=== PATIENT | female | born 1990 | race Caucasian/White ===

== ENCOUNTER 2016-08-14 07:45 | Emergency (ER) | payer OTHER ==
[~2016-08-14] VITALS: Ht 167.6 cm; Wt 59.1 kg
--- NOTE | 2016-08-14 08:12 | ERD ---
ER Documentation Chief Complaint Date/Time DATE: 08/14/16 TIME: 08:01 Chief Complaint HPI 26-year-old female with no significant medical history presents to the ED via rescue ambulance for evaluation of anxiety. Bystanders activated 911 after they witnessed her stumbling around in the street. Patient states [facility]. She feels anxious and has not had her Xanax since discharge. Denies depression, hallucinations, suicidal or homicidal ideations. Otherwise asymptomatic. No chest pain, shortness of breath or palpitations. No shortness of breath or cough. Denies headache neck or back pain. No fevers or chills. History limited due to cognitive impairment. ROS All systems reviewed and are negative except as per history of present illness. Medications Home Meds Unable to Obtain Active Prescriptions or Reported Meds Allergies Allergies: Coded Allergies: Unknown: Unable to obtain (Unverified , 08/14/16) PMhx/Soc Reviewed in chart. As per HPI. History of Surgery: No Anesthesia Reaction: No Hx Neurological Disorder: No Hx Respiratory Disorders: No Hx Cardiac Disorders: No Hx Psychiatric Problems: Yes (Anxiety) Hx Miscellaneous Medical Probl: No Hx Alcohol Use: No Hx Substance Use: No Hx Tobacco Use: No FmHx No stroke or cancer Family History: No coronary disease, No diabetes, No other Physical Exam Vitals Vital Signs Date Time Temp Pulse Resp B/P Pulse Ox O2 Delivery O2 Flow Rate FiO2 08/14/16 14:52 98.0 100 16 119/77 99 Room Air 08/14/16 11:00 109 16 109/84 99 Room Air 08/14/16 09:00 89 16 96/61 99 Room Air 08/14/16 08:36 96.6 79 12 98/69 100 Physical Exam Const: Sleepy but arousable. Intermittently restless and agitated.. Head: Atraumatic Eyes: Pupils equal reactive to light, extraocular movements are intact. Normal Conjunctiva. Horizontal nystagmus. ENT: Normal External Ears, Nose and Mouth. + Gag. Neck: Full range of motion. Nontender. No meningismus. Resp: Breath sounds are equal and clear to auscultation bilaterally. No rales rhonchi or wheezes. Cardio: Regular rate and rhythm, no murmurs Abd: Soft, non tender, non distended. Normal bowel sounds. No rebound or guarding. No masses or abnormal pulsations. Skin: No petechiae or rashes Back: No midline or flank tenderness Ext: No cyanosis, or edema Neur: Sleepy but arousable. Cranial nerves II through XII are grossly intact. No focal deficit observed. Psych: Restless and agitated. Denies drug or alcohol use. Result Diagram: 08/14/16 1255 08/14/16 1127 Results 24 hrs Laboratory Tests Test 08/14/16 07:58 08/14/16 08:03 08/14/16 11:27 08/14/16 12:55 Urine Color LT. YELLOW Urine Clarity CLEAR Urine pH 6.0 Urine Specific [place] <=1.005 Urine Ketones NEGATIVE Urine Nitrite NEGATIVE Urine Bilirubin NEGATIVE Urine Urobilinogen 0.2 E.U./dL Urine Leukocyte Esterase NEGATIVE Urine Microscopic RBC 0-2/HPF Urine Microscopic WBC 0-2/HPF Urine Squamous Epithelial Cells OCCASIONAL Urine Bacteria OCCASIONAL Urine Hemoglobin 1+ Urine Glucose NEGATIVE% Urine Total Protein NEGATIVE Urine Test NEGATIVE Urine Opiates Screen Negative Urine Barbiturates Negative Urine Amphetamines Screen Negative Urine Benzodiazepines Screen Negative Urine Cocaine Screen Negative Urine Cannabinoids Negative Bedside Glucose 83mg/dL Sodium Level 145mmol/L Potassium Level 3.4mmol/L Chloride Level 110mmol/L Carbon Dioxide Level 26mmol/L Anion Gap 12 Blood Urea Nitrogen 7mg/dl Creatinine 0.69mg/dl Glucose Level 96mg/dl Calcium Level 8.4mg/dl Total Bilirubin 0.1mg/dl Direct Bilirubin 0.00mg/dl Indirect Bilirubin 0.1mg/dl Aspartate Amino Transf (AST/SGOT) 21IU/L Alanine Aminotransferase (ALT/SGPT) 21IU/L Alkaline Phosphatase 49IU/L Total Protein 5.7g/dl Albumin 3.2g/dl Globulin 2.50g/dl Albumin/Globulin Ratio 1.28 Thyroid Stimulating Hormone (TSH) 0.785MIU/L Ethyl Alcohol Level 194.0mg/dl White Blood Count 5.010^3/ul Red Blood Count 4.7210^6/ul Hemoglobin 13.5g/dl Hematocrit 40.4% Mean Corpuscular Volume 85.6fl Mean Corpuscular Hemoglobin 28.6pg Mean Corpuscular Hemoglobin Concent 33.4g/dl Red Cell Distribution Width 14.3% Platelet Count 35079^3/UL Mean Platelet Volume 9.9fl Neutrophils % 50.8% Lymphocytes % 40.8% Monocytes % 5.8% Eosinophils % 1.8% Basophils % 0.6% Nucleated Red Blood Cells % 0.0/100WBC Neutrophils # 2.510^3/ul Lymphocytes # 2.010^3/ul Monocytes # 0.310^3/ul Eosinophils # 0.110^3/ul Basophils # 0.010^3/ul Nucleated Red Blood Cells # 0.010^3/ul Vitamin D 1,25-Dihydroxy 43.3ng/ml Current Medications Medications (Trade) Dose Ordered Sig/Radha Route PRN Reason Start Time Stop Time Status Last Admin Dose Admin Naloxone HCl (Narcan) 0.4 mg STK-MED ONCE .ROUTE 08/14/16 09:05 08/14/16 09:06 DC Naloxone HCl 2 mg 2 mg STK-MED ONCE .ROUTE 08/14/16 09:06 08/14/16 09:07 DC Dextrose/Sodium Chloride (D5-1/2ns) 1,000 ml @ 100 mls/hr Q10H IV 08/14/16 13:02 08/14/16 13:09 DC IV Flush (NS 3 ml) 3 ml PER PROTOCOL IV 08/14/16 13:30 08/14/16 14:24 DC Ondansetron HCl (Zofran Inj) 4 mg Q6H PRN IV NAUSEA AND/OR VOMITING 08/14/16 13:30 08/14/16 14:24 DC Acetaminophen/ Hydrocodone Bitart ([place] (5/325)) 1 tab Q6H PRN PO PAIN LEVEL 4-6 08/14/16 13:30 08/14/16 14:23 DC Morphine Sulfate (morphine) 2 mg Q4H PRN IV PAIN LEVEL 7-10 08/14/16 13:30 08/14/16 14:24 DC Famotidine (Pepcid) 20 mg Q12 PO 08/14/16 21:00 08/14/16 21:00 DC Lorazepam 1 mg 1 mg Q2H PRN IV Anxiety 08/14/16 13:30 08/14/16 14:23 DC Potassium Chloride/Dextrose/ Sod Cl (D5-1/2ns + KCl 20 Meq) 1,000 ml @ 100 mls/hr Q10H IV 08/14/16 13:30 4/22/17 14:23 DC Procedures/MDM DOCUMENTS REVIEWED: ED nurse, EMS, no prior records REEXAMINATION/REEVALUATION: Time: 09:00: Lethargic with episode of apnea. Responded to Ativan 1 mg IV. Time:10:00: Sleeping but arousable. O2 saturation 98%. Vital signs stable. Still agitated when aroused Time:11:30: Remains uncooperative and agitated. Vital signs are stable. Time: 13:15: Alert and oriented. Ambulatory with a steady gait. Mother is at the bedside. Patient now states that she remembers being released from [facility] yesterday and then smoking a cigarette she got from someone and has no recollection of events leading up to her ED visit. She is upset that she missed her methadone appointment this afternoon. Request to be discharged in her mother's care. Time 14:20: Alert & Oriented. Asymptomatic. Denies suicidality or homicidality. MEDICAL DECISION MAKIN-year-old female with no significant medical history presents to the ED via rescue ambulance for evaluation of anxiety. Patient presents with symptoms of acute intoxication secondary to alcohol and other unknown substances. Agitation requiring physical restraints for protection against self injury. She developed increasing lethargy with hypoventilation with periods of apnea that responded to naloxone although urine toxicology is negative. No CT evidence of bleed, infarct or hydrocephalus. No seizures. No acute electrolyte abnormalities or hypoglycemia. Observed in the ED for over 5 hours. Initial plans for admission canceled as patient's sensorium has cleared. Stable for discharge with precautionary instructions and outpatient followup as counseled. ontracts for safety. Drug cessation counseling provided. Counseled patient and mother regarding diagnostic workup, diagnosis and need for followup. Understands to return to ED if symptoms recur, worsen or any other concerns. OBSERVATION NOTE: At 08:15 the patient was entered into observation status to establish the need for admission. During this time the patient was treated for alterd mental status. Additionally, extensive evaluation including, CBC, Chemistry, Urinalysis, UDS and CAT scan of the brain were preformed and results interpreted as above. Vitals signs were monitored and repeat exams were performed every 15-20 minutes. At 14:15 the patient was reexamined; VSS, afebrile, pain resolved and tolerating PO's. Based on these findings the patient was discharged from observation period as it was determined that the patient was improved and met criteria fordischarge. Departure Diagnosis: Primary Impression: Altered level of consciousness Additional Impressions: Acute encephalopathy Polysubstance abuse Methadone dependence Condition: Stable MIGUEL EAGLE MD Aug 14, 2016 08:12
[2016-08-14 08:36] VITALS: Ht 167.6 cm; Wt 59.1 kg
[2016-08-14] MEDS ORDERED: NALOXONE (0.4 MG/ML) INJ ONE (09:05)
[2016-08-14] MEDS ORDERED: NALOXONE 2 MG SYG ONE (09:06)
[2016-08-14 09:08] LABS: CANNABINOIDS Negative (NEGATIVE)
[2016-08-14 09:15] LABS: BARBITURATES Negative (NEGATIVE); BENZODIAZEPINES Negative (NEGATIVE); COCAINE Negative (NEGATIVE); OPIATES Negative (NEGATIVE)
[2016-08-14 09:49] LABS: ADD SCAN DIFF NO
--- NOTE | 2016-08-14 10:07 | RADRPT ---
PROCEDURE: Noncontrast CT Head. CLINICAL INDICATION: Altered level of consciousness. TECHNIQUE: Noncontrast CT of the head was obtained. The administered radiation dose was CTDI vol = 45.01 mGy, DLP = 720.23 mGy-cm. One or more of the following dose reduction techniques were used: Au tomated exposure control, Adjustment of the mA and/or kV according to patient size, or Use of iterat lilo reconstruction technique. COMPARISON: There are no similar studies submitted for comparison. FINDINGS: The ventricles and sulci are within normal limits. There is no loss of byrd-white differentiation to suggest acute territorial infarction. There is no acute intracranial hemorrhage or extra-axial fluid collection. There is no mass effect. No midline shift is identified. The orbits are within normal limits. There is mild right sphenoid sinus mucosal thickening. No destructive osseous lesion is identified. IMPRESSION: No acute intracranial hemorrhage or extra-axial fluid collection. Further findings as detailed above. RPTAT: AA .Prudencio Woody MD, MD Date Time Electronically viewed and signed by .Prudencio Woody MD, MD on 08/14/2016 10:07 .F/
--- NOTE | 2016-08-14 10:12 | RADRPT ---
PROCEDURE: Chest x-ray CLINICAL INDICATION: Altered mental status TECHNIQUE: Chest single view COMPARISON: None FINDINGS: The heart is normal in size. The pulmonary vessels are normal in caliber. The lungs are clear. Th e costophrenic angles are sharp. The visualized bony thorax is unremarkable. IMPRESSION: No acute cardiopulmonary disease. RPTAT: HH .Cameron Patterson MD, Date Time Electronically viewed and signed by .Cameron Patterson MD, MD on 08/14/2016 10:12 .W/
[2016-08-14 11:50] LABS: ALBUMIN 3.2 g/dl (3.3-4.9)
[2016-08-14 11:51] LABS: POTASSIUM 3.4 mmol/L (3.5-5.1)
[2016-08-14 11:51] LABS: ADD UMIC YES; URINE BILIRUBIN (Dip) NEGATIVE (NEGATIVE); URINE BLOOD (Dip) 1+ (NEGATIVE); URINE COLOR LT. YELLOW (YELLOW); URINE GLUCOSE (Dip) NEGATIVE (NEGATIVE); URINE KETONES (Dip) NEGATIVE (NEGATIVE); URINE LEUKOCYTE ESTERASE (Dip) NEGATIVE (NEGATIVE); URINE NITRITE (Dip) NEGATIVE (NEGATIVE); URINE TOTAL PROTEIN (Dip) NEGATIVE (NEGATIVE); URINE UROBILINOGEN (Dip) 0.2 E.U./dL (0.1-1.0)
[2016-08-14 11:53] LABS: ALBUMIN/GLOBULIN RATIO 1.28; BILIRUBIN,INDIRECT 0.1 mg/dl (0-1.1); BILIRUBIN,TOTAL 0.1 mg/dl (0.2-1.3); CALCIUM 8.4 mg/dl (8.4-10.2); CREATININE 0.69 mg/dl (0.44-1.00); TOTAL PROTEIN 5.7 g/dl (6.1-8.1)
[2016-08-14 12:07] LABS: SQUAMOUS EPITHELIAL CELL,UR OCCASIONAL; URINE RBCS 0-2 /HPF (0)
[2016-08-14 12:08] LABS: BACTERIA,URINE OCCASIONAL
[2016-08-14] MEDS ORDERED: DEXTROSE 5%-0.45% NACL 1,000 ML IV SCH (13:02)
[2016-08-14 13:08] LABS: BASOPHILS % 0.6 % (0.0-2.0); EOSINOPHILS # 0.1 10^3/ul (0.0-0.5); EOSINOPHILS % 1.8 % (0.0-7.0); HEMATOCRIT 40.4 % (37.0-47.0); HEMOGLOBIN 13.5 g/dl (12.0-16.0); LYMPHOCYTES % 40.8 % (15.0-51.0); MEAN CORPUSCULAR HEMOGLOBIN 28.6 pg (29.0-33.0); MEAN CORPUSCULAR HGB CONC 33.4 g/dl (32.0-37.0); MEAN CORPUSCULAR VOLUME 85.6 fl (82.0-101.0); MEAN PLATELET VOLUME 9.9 fl (7.4-10.4); MONOCYTE # 0.3 10^3/ul (0.3-0.9); MONOCYTES % 5.8 % (0.0-11.0); NEUTROPHIL # 2.5 10^3/ul (1.6-7.5); NEUTROPHILS % 50.8 % (39.0-77.0); PLATELET COUNT 217 10^3/UL (140-415); RED BLOOD COUNT 4.72 10^6/ul (4.20-5.40); RED CELL DISTRIBUTION WIDTH 14.3 % (11.5-14.5)
[2016-08-14] MEDS ORDERED: LORAZEPAM 2 MG INJ IV PRN (13:30)
[2016-08-14] MEDS ORDERED: HYDROCODONE/APAP (5/325) TAB PO PRN (13:30)
[2016-08-14] MEDS ORDERED: NACL 0.9% 3 ML SYG IV SCH (13:30)
[2016-08-14] MEDS ORDERED: D5W-0.45 NACL + KCL 20 MEQ 1,000 ML IV SCH (13:30)
[2016-08-14] MEDS ORDERED: ONDANSETRON 4 MG INJ IV PRN (13:30)
[2016-08-14] MEDS ORDERED: morphine 2 MG INJ IV PRN (13:30)
[2016-08-14 14:52] VITALS: BP 119/77; PULSE 100; RESP 16; TEMP 98
[2016-08-14] MEDS ORDERED: FAMOTIDINE 20 MG TAB PO SCH (21:00)
== END 2016-08-14 17:53 | disposition home or self-care (01) ==
LOC: E/R 07:45
DX: R40.4 Transient alteration of awareness (principal); R40.2252 Coma scale, best verbal response, oriented, at arrival to emergency department; G93.40 Encephalopathy, unspecified; F11.20 Opioid dependence, uncomplicated; F19.10 Other psychoactive substance abuse, uncomplicated; R40.2142 Coma scale, eyes open, spontaneous, at arrival to emergency department; R40.2362 Coma scale, best motor response, obeys commands, at arrival to emergency department
CPT/HCPCS: 70450; 71010; 80053; 80306; 80307; 81001; 82652; 82962; 84443; 84703; 85025; J2310; J7042; Z7502; 81003